=== PATIENT | female | born 1945 | race African-American/Black ===

== ENCOUNTER 2021-09-24 19:40 | Emergency (ER) | payer MEDICARE, OTHER ==
[~2021-09-24] VITALS: Ht 162.6 cm; Wt 55.8 kg
[2021-09-24 20:34] LABS: Basophils # (auto) 0.1 10 ^3/uL (0-0.2); Basophils % (auto) 0.7 % (0.0-2.0); Eosinophils # (auto) 0 10 ^3/uL (0-0.8); Eosinophils % (auto) 0.1 % (0.0-7.0); Hematocrit 33.8 % (36.0-46.0); Hemoglobin 11.3 g/dL (12.2-16.2); Mean Corpuscular Hemoglobin 28.4 pg (28.0-32.0); Mean Corpuscular Hgb Conc. 33.5 g/dL (32.0-36.0); Monocytes # (auto) 0.6 10 ^3/uL (0-1.3); Monocytes % (auto) 6.8 % (0.0-12.0); Neutrophils # (auto) 7.4 10 ^3/uL (1.6-8.6); Neutrophils % (auto) 81.4 % (37.0-80.0); Red Blood Cells 3.98 10^6/uL (4.0-5.20); Red Cell Distribution Width 17.9 % (11.8-14.3); White Blood Cell 9.1 10^3/uL (4.4-10.8)
[2021-09-24 20:42] LABS: Albumin 3.8 g/dL (3.4-5.0); Calcium 9.6 mg/dL (8.5-10.1); Magnesium 2.5 mg/dL (1.6-2.6); Potassium 3.9 mmol/L (3.5-5.1)
[2021-09-24 20:44] LABS: BUN/Creatinine Ratio 13.8
[2021-09-24 20:47] LABS: Bilirubin, Total 0.7 mg/dL (0.2-1.0); Total Protein 7.1 g/dL (6.4-8.2)
[2021-09-24 20:55] LABS: INR 2.8 (0.9-1.15); Partial Thromboplastin Time 27.9 sec (23.6-33.0)
[2021-09-24 21:03] LABS: Urine Bacteria FEW /hpf (None Seen); Urine Blood Negative /uL (Negative); Urine Specific Gravity 1.018 (1.001-1.035); Urine WBC 5 /hpf (0 - 5)
[2021-09-24] MEDS ORDERED: LACTATED RINGER'S 1,000 ML IV ONE (21:15)
[2021-09-24] MEDS ORDERED: IOHEXOL 300 MG/ML 100ML BOTTLE IJ ONE (21:20)
[2021-09-25] MEDS ORDERED: CIPR-173 PO (00:46)
[2021-09-25 00:53] VITALS: BP 155/92
== END 2021-09-25 00:39 | disposition home or self-care (01) ==
LOC: ER 19:40
DX: N39.0 Urinary tract infection, site not specified (principal); R11.2 Nausea with vomiting, unspecified; I10 Essential (primary) hypertension; I48.91 Unspecified atrial fibrillation
CPT/HCPCS: 36415; 71046; 74176; 80053; 81001; 82150; 83605; 83690; 83735; 84100; 84484; 85025; 85610; 85730; 96360; 99285; J7030; Q9967; 93005

== ENCOUNTER 2024-01-23 14:35 | Inpatient (IN) | payer MEDICARE, OTHER ==
[~2024-01-23] VITALS: Ht 162.6 cm; Wt 57.6 kg
[~2024-01-23 14:35] MED LIST: ALLO100T PO; CEFU500T43 PO; CIPR-173 PO; FURO20TA4 PO; HYDR50TA47 PO; LISI20TA56 PO; MET50T PO; ROSU10TA64 PO; TIOT17SP INH; WARF-110 PO
[2024-01-23 15:21] LABS: Basophils # (auto) 0.1 10 ^3/uL (0-0.2); Eosinophils # (auto) 0 10 ^3/uL (0-0.8); Eosinophils % (auto) 0.3 % (0.0-7.0); Hematocrit 36.4 % (36.0-46.0); Hemoglobin 12.2 g/dL (12.2-16.2); Lymphocytes % (auto) 20.2 % (10.0-50.0); Mean Corpuscular Hemoglobin 30.1 pg (28.0-32.0); Mean Corpuscular Hgb Conc. 33.4 g/dL (32.0-36.0); Monocytes # (auto) 0.5 10 ^3/uL (0-1.3); Monocytes % (auto) 10.9 % (0.0-12.0); Neutrophils # (auto) 3.4 10 ^3/uL (1.6-8.6); Neutrophils % (auto) 67.6 % (37.0-80.0); Nucleated Red Blood Cells % 0.1 %; Platelet Count (auto) 177 10^3/uL (140-450); Red Blood Cells 4.04 10^6/uL (4.0-5.20); Red Cell Distribution Width 16.3 % (11.8-14.3)
[2024-01-23 15:37] LABS: INR 1.71 (0.9-1.15); Partial Thromboplastin Time 30.6 SEC (24.5-34.5); Prothrombin Time 17.4 sec (9.3-11.8)
[2024-01-23 15:41] LABS: Alanine Aminotransferase 23 U/L (7-40); Albumin 4.2 g/dL (3.2-4.8); Alkaline Phosphatase 84 U/L (46-116); Anion Gap 11 (5-15); Aspartate Aminotransferase 31 U/L (13-40); Bilirubin, Total 0.6 mg/dL (0.2-1.0); Blood Urea Nitrogen 19 mg/dL (9-23); Calcium 9.5 mg/dL (8.7-10.4); Carbon Dioxide 21 mmol/L (20-30); Chloride 107 mmol/L (98-107); Glucose 107 mg/dL (74-106); Potassium 4.2 mmol/L (3.5-5.1); Sodium 139 mmol/L (136-145); Total Protein 7.1 g/dL (5.7-8.2)
[2024-01-23] MEDS: FUROSEMIDE 40 MG/4 ML VIAL IV ONE (17:15)
[2024-01-23 18:05] LABS: INR 1.64 (0.9-1.15); Partial Thromboplastin Time 28.4 SEC (24.5-34.5); Prothrombin Time 16.8 sec (9.3-11.8)
[2024-01-23 20:14] VITALS: PULSE 84; RESP 14; O2SAT 99
[2024-01-23] MEDS ORDERED: NITROGLYCERIN 0.4 MG SL TAB SL PRN (21:15)
[2024-01-23] MEDS ORDERED: ONDANSETRON HCL 4 MG/2 ML VIAL IV PRN (21:15)
[2024-01-23] MEDS ORDERED: HYDROcodone-ACET 5/325MG TAB PO PRN (21:15)
[2024-01-23] MEDS ORDERED: MORPHINE SULFATE INJ 2 MG/ml SYRG IV PRN (21:15)
[2024-01-23] MEDS ORDERED: IPRATROPIUM BROM 0.5 MG/2.5ML INH SOL NEB PRN (21:15)
[2024-01-23] MEDS ORDERED: ALBUTEROL SULF 2.5 MG/0.5ML(0.5%) NEB SOLN NEB PRN (21:15)
[2024-01-23] MEDS ORDERED: ACETAMINOPHEN 325 MG TAB PO PRN (21:15)
[2024-01-23] MEDS ORDERED: DOCUSATE SOD 100 MG CAP PO PRN (21:15)
[2024-01-23] MEDS: methylPREDNISolone SOD SUCC 40 MG/ML VL IM ONE (21:42)
[2024-01-23] MEDS: ATORVASTATIN 20 MG TAB PO SCH (21:55)
[2024-01-23] MEDS: CARVEDILOL 3.125 MG TAB PO SCH (22:00)
[2024-01-23] MEDS: SODIUM CHLOR 0.9% PF (SALINE LOCK) 10ML VIAL/SYR IV SCH (22:00)
[2024-01-23] MEDS: WARFARIN SODIUM 5 MG TAB PO ONE (22:00)
[2024-01-23] MEDS: methylPREDNISolone SOD SUCC 40 MG/ML VL IV SCH (22:08)
[2024-01-24] VITALS (14 sets, daily range): BP systolic 111–131; BP diastolic 65–83; PULSE 67–102; RESP 16–18; TEMP 97.4–98.5; O2SAT 94–100
[2024-01-24 01:05] LABS: COVID19 ANTIGEN SOFIA FIA POSITIVE (NEGATIVE)
[2024-01-24 06:26] LABS: Basophils # (auto) 0 10 ^3/uL (0-0.2); Basophils % (auto) 0.7 % (0.0-2.0); Eosinophils # (auto) 0 10 ^3/uL (0-0.8); Hematocrit 35.7 % (36.0-46.0); Lymphocytes # (auto) 0.9 10 ^3/uL (0.4-5.4); Lymphocytes % (auto) 21.9 % (10.0-50.0); Mean Corpuscular Hemoglobin 30.4 pg (28.0-32.0); Mean Corpuscular Hgb Conc. 33.5 g/dL (32.0-36.0); Mean Corpuscular Volume 90.7 fL (80.0-100.0); Monocytes # (auto) 0.1 10 ^3/uL (0-1.3); Monocytes % (auto) 3.4 % (0.0-12.0); Neutrophils # (auto) 3.1 10 ^3/uL (1.6-8.6); Nucleated Red Blood Cells % 0.3 %; Platelet Count (auto) 155 10^3/uL (140-450); Red Blood Cells 3.93 10^6/uL (4.0-5.20); Red Cell Distribution Width 16.4 % (11.8-14.3); White Blood Cell 4.2 10^3/uL (4.4-10.8)
[2024-01-24 06:31] LABS: Alanine Aminotransferase 27 U/L (7-40); Alkaline Phosphatase 79 U/L (46-116); Anion Gap 10 (5-15); Aspartate Aminotransferase 29 U/L (13-40); BUN/Creatinine Ratio 16.2 (10.0-20.0); Blood Urea Nitrogen 23 mg/dL (9-23); Calcium 9.6 mg/dL (8.7-10.4); Carbon Dioxide 22 mmol/L (20-30); Chloride 108 mmol/L (98-107); Glucose 98 mg/dL (74-106); Potassium 4.5 mmol/L (3.5-5.1); Sodium 140 mmol/L (136-145)
[2024-01-24 06:32] LABS: Bilirubin, Total 0.5 mg/dL (0.2-1.0); Total Protein 6.6 g/dL (5.7-8.2)
[2024-01-24 06:38] LABS: INR 1.67 (0.9-1.15)
[2024-01-24] MEDS ORDERED: IPRATROPIUM BROM 0.5 MG/2.5ML INH SOL NEB SCH ×2 (08:15→12:00)
[2024-01-24] MEDS: FUROSEMIDE 20 MG/2 ML VIAL IV SCH (11:12)
[2024-01-24] MEDS: BUDESONIDE (INHALATION) 180 MCG IH IN SCH (11:28)
[2024-01-24] MEDS ORDERED: LEVALBUTEROL HCL 1.25 MG/3 ML NEB NEB SCH (12:00)
[2024-01-24] MEDS: WARFARIN SODIUM 5 MG TAB PO ONE (17:05)
[2024-01-24] MEDS ORDERED: REMDESIVIR PER PHARMACY 0 ML IV SCH (17:15)
[2024-01-24] MEDS: ALLOPURINOL 100 MG TAB PO ONE (18:47)
[2024-01-24] MEDS: ENOXAPARIN SOD 100 MG/1 ML SYRINGE SC ONE (18:48)
[2024-01-24] MEDS: REMDESIVIR 200 MG in NS 210ml LOADING DOSE ADULT IV ONE (20:22)
[2024-01-24 20:53] LABS: Rapid Influenza A Negative (Negative); Rapid Influenza B Negative (Negative)
[2024-01-24] MEDS: SACUBITRIL-VALSARTAN 24mg/26mg TAB PO SCH (22:08)
[2024-01-25] VITALS (7 sets, daily range): BP systolic 94–104; BP diastolic 55–65; PULSE 67–105; RESP 17–19; TEMP 97.6–97.8; O2SAT 96–100
[2024-01-25 00:10] LABS: Urine Bacteria None Seen /hpf (None Seen)
[2024-01-25 00:28] LABS: Urine Blood Negative /uL (Negative); Urine Clarity Clear (Clear); Urine Color Light-Yellow (Yellow); Urine Protein, UAD Negative (Negative); Urine Specific Gravity 1.015 (1.001-1.035); Urine Urobilinogen Normal (Negative); Urine WBC 2 /hpf (0 - 5)
[2024-01-25] MEDS: ALBUTEROL SULF HFA 90MCG INH 200DOSE IN PRN (06:27)
[2024-01-25 08:12] LABS: Chloride 108 mmol/L (98-107); Potassium 3.9 mmol/L (3.5-5.1); Sodium 139 mmol/L (136-145)
[2024-01-25 08:13] LABS: Anion Gap 12 (5-15); Calcium 9.1 mg/dL (8.7-10.4); Carbon Dioxide 19 mmol/L (20-30)
[2024-01-25 08:18] LABS: BUN/Creatinine Ratio 27.6 (10.0-20.0); Glucose 81 mg/dL (74-106)
[2024-01-25 08:19] LABS: Blood Urea Nitrogen 34 mg/dL (9-23)
[2024-01-25] MEDS: METOPROLOL TARTRATE 50 MG TAB PO ONE (09:35)
[2024-01-25] MEDS: ALLOPURINOL 100 MG TAB PO SCH (09:35)
[2024-01-25 09:39] LABS: Basophils # (auto) 0 10 ^3/uL (0-0.2); Basophils % (auto) 0.6 % (0.0-2.0); Eosinophils # (auto) 0 10 ^3/uL (0-0.8); Eosinophils % (auto) 0.2 % (0.0-7.0); Hematocrit 37.8 % (36.0-46.0); Hemoglobin 12.6 g/dL (12.2-16.2); Lymphocytes # (auto) 1.3 10 ^3/uL (0.4-5.4); Lymphocytes % (auto) 31.9 % (10.0-50.0); Mean Corpuscular Hemoglobin 30.1 pg (28.0-32.0); Mean Corpuscular Hgb Conc. 33.3 g/dL (32.0-36.0); Mean Corpuscular Volume 90.3 fL (80.0-100.0); Monocytes # (auto) 0.4 10 ^3/uL (0-1.3); Monocytes % (auto) 9.2 % (0.0-12.0); Neutrophils # (auto) 2.4 10 ^3/uL (1.6-8.6); Neutrophils % (auto) 58.1 % (37.0-80.0); Nucleated Red Blood Cells % 0.2 %; Platelet Count (auto) 176 10^3/uL (140-450); Red Blood Cells 4.18 10^6/uL (4.0-5.20); Red Cell Distribution Width 16.5 % (11.8-14.3); White Blood Cell 4.1 10^3/uL (4.4-10.8)
[2024-01-25 09:56] LABS: INR 2.81 (0.9-1.15); Prothrombin Time 27.6 sec (9.3-11.8)
[2024-01-25] MEDS ORDERED: ENOXAPARIN SOD 100 MG/1 ML SYRINGE SC SCH ×2 (10:00)
[2024-01-25] MEDS ORDERED: ALLOPURINOL 100 MG TAB PO SCH (10:00)
[2024-01-25] MEDS ORDERED: ACET-1882 PO (13:15)
[2024-01-25] MEDS ORDERED: EMPA1TAB PO (13:15)
[2024-01-25] MEDS ORDERED: SPIR25TA8 PO (13:15)
[2024-01-25] MEDS ORDERED: SACU1TAB PO (13:15)
[2024-01-25] MEDS ORDERED: REMDESIVIR 100mg 100 MG in SODIUM CHL 0.9% 230 ML IV SCH (15:00)
[2024-01-25] MEDS ORDERED: WARFARIN SODIUM 2.5 MG TAB PO ONE (17:00)
== END 2024-01-25 14:30 | disposition home or self-care (01) | DRG 177 ==
LOC: ER 14:35 → TELE 21:18 → TELE-WESTW 21:18 → CENTRAL 01-24 07:27 → TELE-CENTR 01-24 19:59
PROVIDERS: ADMIT Internal Medicine Pulmonary Disease; ATTEND Internal Medicine Pulmonary Disease
PROC: XW033E5 Introduction of Remdesivir Anti-infective into Peripheral Vein, Percutaneous Approach, New Technology Group 5 (ICD-10-PCS; principal; 2024-01-24)
DX: U07.1 COVID-19 (principal); I50.23 Acute on chronic systolic (congestive) heart failure; N17.0 Acute kidney failure with tubular necrosis; I13.0 Hypertensive heart and chronic kidney disease with heart failure and stage 1 through stage 4 chronic kidney disease, or unspecified chronic kidney disease; J44.1 Chronic obstructive pulmonary disease with (acute) exacerbation; I48.91 Unspecified atrial fibrillation; I07.1 Rheumatic tricuspid insufficiency; N18.32 Chronic kidney disease, stage 3b; E78.5 Hyperlipidemia, unspecified; M10.9 Gout, unspecified; G90.A Postural orthostatic tachycardia syndrome [POTS]; Z88.8 Allergy status to other drugs, medicaments and biological substances; Z95.5 Presence of coronary angioplasty implant and graft; Z87.891 Personal history of nicotine dependence
CPT/HCPCS: 36415; 71045; 80048; 80053; 81001; 82306; 82607; 83036; 83735; 83880; 84443; 84484; 85025; 85610; 85730; 87081; 87426; 87804; 93005; 93306; 94640; 96374; G0378

== ENCOUNTER 2024-09-28 11:29 | Emergency (ER) | payer MEDICARE, OTHER ==
[~2024-09-28] VITALS: Ht 162.6 cm; Wt 54.0 kg
[~2024-09-28 11:29] MED LIST changes: +ACET-1882 PO; -CEFU500T43 PO; -CIPR-173 PO; +EMPA1TAB PO; -HYDR50TA47 PO; -LISI20TA56 PO; +SACU1TAB PO; +SPIR25TA8 PO
[2024-09-28 11:35] VITALS: O2SAT 100
--- NOTE | 2024-09-28 11:37 | ECG ---
[facility] Test Date: 2024-09-28 Test Time: 11:36:40 Pat Name: SUJATHA CHANG Department: ER Room: Gender: F Straw Boss: LJ : 1945 Requested By: BERYL JONES Order Number: [id number] Reading MD: Que Ruth Measurements Intervals [place] Rate: 81 P: 0 OR: 0 QRS: -18 QRSD: 101 T: 40 QT: 397 QTc: 461 Interpretive Statements Atrial fibrillation Anterior infarct, old Electronically Signed On 09-28-2024 21:05:13 PDT by Que Ruth Please click the below link to view image of tracing.
--- NOTE | 2024-09-28 12:44 | ED.PDOC ---
HPI Comments 79-year-old female presents to the ER with prior history of hypertension, high lipids, AFib, dementia, hyperparathyroidism, COPD, CHF; surgical history of cardiac stent, mitral valve repair chest pain. Patient was with the son and he stated that they 1st went to [facility] for abdominal pain but they were informed they got an abnormal EKG from the patient and to go to to the ER. Patient was stating of having sternal chest pain for four days, which coming go. Today the chest pain lasting for 1 hour. Denies chills, fever, N/V/D, SOB. No other associated symptoms, modifiers, recent injuries or sick contacts present at this time. Chief Complaint: Chest Pain Time Seen by MD: 12:30 Primary Care Provider: [place] Reviewed Notes: Nurses Notes, Medications, Allergies Allergies: Coded Allergies: Amlodipine (Verified Allergy, Severe, rash, 03/13/23) Labetalol (Verified Allergy, Unknown, 03/13/23) Home Meds Active Scripts Spironolactone (Spironolactone) 25 Mg Tab, 1 TAB PO DAILY for 90 Days, #90 TAB 1 Refill Prov:JENARO GOMEZ RESIDENT 01/25/24 Empagliflozin (Jardiance) 10 Mg Tab, 10 MG PO DAILY for 30 Days, #30 TAB Prov:JENARO GOMEZ RESIDENT 01/25/24 Sacubitril-Valsartan (Entresto 24-26 mg) 1 Tab Tab, 1 TAB PO BID for 30 Days, #60 TAB Prov:JENARO GOMEZ RESIDENT 01/25/24 Acetaminophen (Acetaminophen) 325 Mg Tab, 650 MG PO Q6HP PRN for 10 Days, #80 TAB Prov:JENARO GOMEZ RESIDENT 01/25/24 Reported Medications Furosemide (Furosemide) 20 Mg Tab, 1 TAB PO DAILY 02/03/23 Metoprolol Tartrate (LOPRESSOR TABLET) 50 Mg Tb, 1 TAB PO DAILY 02/03/23 Allopurinol (Allopurinol) 100 Mg Tab, 2 TAB PO DAILY 02/03/23 Warfarin Sodium (Warfarin Sodium) 2.5 Mg Tab, 2.5 TAB PO DAILY 02/03/23 Rosuvastatin Calcium (Rosuvastatin Calcium) 10 Mg Tab, 1 TAB PO HS 02/03/23 Tiotropium [place] Monohydrate (Spiriva Respimat) 2.5 Mcg/Act Spr, 2 PUFF INH DAILY 02/03/23 Information Source: Patient Mode of Arrival: Wheelchair Severity: Moderate Timing: Days Duration: Since onset, Days Prehospital treatment: None Location: Substernal Radiation: No Radiation Quality: Aching Onset: At Rest Cardiac Risk Factors: Hyperlipidemia, HTN PE Risk Factors: None History of: None Associated Signs and Symptoms: None Past Medical History PAST MEDICAL HISTORY: AFIB, CHF, COPD, Dementia, High Lipids, HTN Past Medical History (Other): Hyperparathyroidism Surgical History (Other): Cardiac stent, mitral valve repair DIALYSIS CLINICAL MANAGER History: No Pertinent DIALYSIS CLINICAL MANAGER History Family History Family History: Reviewed,noncontributory to illness, Unknown Social History Smoker: Non-Smoker Alcohol: Denies ETOH Use Drugs: Denies Drug Use Lives In: Home Constitutional: denies: chills, diaphoresis, fatigue, fever, malaise, sweats, weakness, others EENTM: denies: blurred vision, double vision, ear bleeding, ear discharge, ear drainage, ear pain, ear ringing, eye pain, eye redness, hearing loss, mouth pain , mouth swelling, nasal discharge, nose bleeding, nose congestion, nose pain, photophobia, tearing, throat pain, throat swelling, voice changes, others Respiratory: denies: cough, hemoptysis, orthopnea, SOB at rest, shortness of breath, SOB with excertion, stridor, wheezing, others Cardiovascular: reports: chest pain; denies: dizzy spells, diaphoresis, Dyspnea on exertion, edema, irregular heart beat, left arm pain, lightheadedness, palpitations, PND, syncope, others Gastrointestinal: denies: abdomen distended, abdominal pain, blood streaked bowels, constipated, diarrhea, dysphagia, difficulty swallowing, hematemesis, melena, nausea, poor appetite, poor fluid intake, rectal bleeding, rectal pain, vomiting, others Genitourinary: denies: abnormal vagina bleeding, burning, dyspareunia, dysuria, flank pain, frequency, hematuria, incontinence, pain, , vagina discharge, urgency, others Neurological: denies: dizziness, fainting, headache, left sided numbness, left sided weakness, numbness, paresthesia, pre-existing deficit, right sided numbness, right sided weakness, seizure, speech problems, tingling, tremors, weakness, others Musculoskeletal: denies: back pain, gout, joint pain, joint swelling, muscle pain, muscle stiffness, neck pain, others Integumetry: denies: bruises, change in color, change in hair/nails, dryness, laceration, lesions, lumps, rash, wounds, others Allergic/Immunocompromised: denies: Difficulty Healing, Frequent Infections, Hives, Itching, others Hematologic/Lymphatic: denies: anemia, blood clots, easy bleeding, easy bruising, swollen glands, others Endocrine: denies: excessive hunger, excessive sweating, excessive thirst, excessive urination, flushing, intolerance to cold, intolerance to heat, unexplained weight gain, unexplained weight loss, others Psychiatric: denies: anxiety, bipolar disorder, depression, hopeless, panic disorder, schizophrenia, sleepless, suicidal, others All Other Systems: Reviewed and Negative Physical Exam Exam Comments Chest pain has currently subsided General Appearance: No Apparent Distress, Normal HEENT: Normal ENT Inspection, Pharynx Normal, TMs Normal Neck: Full Range of Motion, Non-Tender, Normal, Normal Inspection Respiratory: Chest Non-Tender, Lungs Clear, No Accessory Muscle Use, No R espiratory Distress, Normal Breath Sounds Cardiovascular: No Edema, No JVD, No Murmur, No Gallop, Normal Peripheral Pulses, Regular Rate/Rhythm Breast Exam: Deferred Gastrointestinal: No Organomegaly, Non Tender, No Pulsatile Mass, Normal Bowel Sounds, Soft Genitalia: Deferred Pelvic: Deferred Rectal: Deferred Extremities: No calf tenderness, Normal capillary refill, Normal inspection, Normal range of motion, Non-tender, No pedal edema Musculoskeletal : Apperance: Normal Neurologic: Alert, sweet pickle maker II-XII nml as Tested, No Motor Deficits, Normal Affect, Normal Mood, No Sensory Deficits Cerebellar Function: Normal Reflexes: Normal Skin: Dry, Normal Color, Warm Lymphatic: No Adenopathy EKG EKG : Pulse Rate (adult): 81 [place]: Normal Cardiac Rhythm: Afib Block: None Hypertrophy: None ST: Normal Was a procedure done? Was a procedure done?: No CP Differential Dx Differential Diagnosis: Other Other Differential Diagnosis Acute coronary syndrome, UTI, pneumonia, electrolyte abnormality, PE, gastritis, atypical chest pain, pleurisy Differential Diagnosis: Other Differential Diagnosis: Angina, Aortic dissection, Chest Wall Pain, Costochondritis, Esophageal reflux/spasm, Myocardial Infarction, Pneumonia, Pneumothorax, Pulmonary Embolus, Other X-Ray, Labs, Meds, VS Vital Signs Date Time Temp Pulse Resp B/P (MAP) Pulse Ox O2 Delivery O2 Flow Rate FiO2 09/28/24 14:24 60 Room Air 09/28/24 14:24 98.2 60 16 104/72 (83) 98.2 09/28/24 12:44 81 09/28/24 11:36 81 09/28/24 11:35 97.2 60 16 126/49 (74) 100 97.2 Lab Test 09/28/24 13:00 09/28/24 11:50 Range/Units Troponin I High Sensitivity 10 11 </=34 ng/L White Blood Count 4.3 L 4.4-10.8 10^3/uL Red Blood Count 5.30 H 4.0-5.20 10^6/uL Hemoglobin 15.1 12.2-16.2 g/dL Hematocrit 46.0 36.0-46.0 % Mean Corpuscular Volume 86.8 80.0-100.0 fL Mean Corpuscular Hemoglobin 28.5 28.0-32.0 pg Mean Corpuscular Hemoglobin Concent 32.8 32.0-36.0 g/dL Red Cell Distribution Width 17.9 H 11.8-14.3 % Platelet Count 185 140-450 10^3/uL Mean Platelet Volume 8.8 6.9-10.8 fL Neutrophils (%) (Auto) 60.4 37.0-80.0 % Lymphocytes (%) (Auto) 28.2 10.0-50.0 % Monocytes (%) (Auto) 7.4 0.0-12.0 % Eosinophils (%) (Auto) 2.7 0.0-7.0 % Basophils (%) (Auto) 1.3 0.0-2.0 % Neutrophils # (Auto) 2.6 1.6-8.6 10 ^3/uL Lymphocytes # (Auto) 1.2 0.4-5.4 10 ^3/uL Monocytes # (Auto) 0.3 0-1.3 10 ^3/uL Eosinophils # (Auto) 0.1 0-0.8 10 ^3/uL Basophils # (Auto) 0.1 0-0.2 10 ^3/uL Nucleated Red Blood Cells 0.1 % Prothrombin Time 42.5 H 9.3-11.8 sec Prothrombin Time INR 4.67 *H 0.9-1.15 Activated Partial Thromboplast Time 39.3 H 24.5-34.5 SEC Sodium Level 141 136-145 mmol/L Potassium Level 4.8 3.5-5.1 mmol/L Chloride Level 108 H 98-107 mmol/L Carbon Dioxide Level 24 20-31 mmol/L Anion Gap 9 5-15 Blood Urea Nitrogen 26 H 9-23 mg/dL Creatinine 1.64 H 0.550-1.02 mg/dL Glomerular Filtration Rate Calc 31 >90 mL/min BUN/Creatinine Ratio 15.9 10.0-20.0 Serum Glucose 90 74-106 mg/dL Calcium Level 10.2 8.7-10.4 mg/dL 79-year-old female presents here with chest discomfort that she has a proximally 1 hour every morning for the last 1 month. Her son is at bedside in his her primary drafter plumbing. At this time blood work has been done which does demonstrate mild acute kidney injury of 20/6 over 1.64 creatinine. Also has significantly elevated INR of 4.67. Troponin x2 is negative. EKG demonstrates atrial fibrillation only. I had a long conversation with the son the patient and the patient's . I advised him that at this time standard of care is to admit the patient however given she is [facility] they will likely need to transfer her to [facility]. At this time family and patient prefer not to be admitted. They advised they will follow up with [facility] to determine if all the cardiac test has been done for. Son does state she had multiple cardiac test done few months ago. At [facility]. Additionally her INR is 4.67. [facility]. I advised him to stop her Coumadin until she gets repeat lab work done at the clinic. Son is agreeable. I strongly advised him to make sure she does not have any falls as this can lead to acute brain hemorrhage. He is aware. She does have mild acute kidney injury today on her labs. I have discussed this with the son and he will follow up with her PCP at [facility]. I again a long conversation with the son regarding any chest pain she has today tomorrow, without appropriate cardiac testing I can not tell him that she is safe. I strongly advised both patient patient's and the son that if she has chest pain even later on today to return back to the ER for further evaluation. The son , and the family family are agreeable. Time of 1ST Reevaluation: 13:00 Reevaluation 1ST: Unchanged Patient Education/Counseling: Diagnosis, Treatment, Prognosis Family Education/Counseling: No Family Present Departure 1 Departure Time of Disposition: 14:05 Impression: Primary Impression: Chest pain Qualified Codes: R07.9 - Chest pain, unspecified Additional Impressions: Acute kidney injury Supratherapeutic INR Disposition: HOME / SELF CARE / HOMELESS Condition: Fair Additional Instructions: DO NOT TAKE HER COUMADIN UNTIL AFTER COUMADIN CLINIC GIVE YOU RESULTS. Discharged With: Self, Relative, Contact Person Critical Care Note Critical Care Time?: No Stability Stability form required: No Heart Score Heart Score: Heart Score Response (Comments) Value History Moderate Suspicious 1 EKG Normal 0 Age >65 2 Risk Factors 1 or 2 risk factors 1 Troponin Normal limit 0 Total 4 I personally scribed for BERYL JONES MD ([email or web address]) on 09/28/24 at 12:44. Electronically submitted by Carloz Kapoor (Class MessengerA). I personally scribed for BERYL JONES MD ([email or web address]) on 09/28/24 at 14:05. Electronically submitted by Carloz Kapoor (Class MessengerA). BERYL JONES MD September 28, 2024 12:44
[2024-09-28 12:49] LABS: Basophils # (auto) 0.1 10 ^3/uL (0-0.2); Basophils % (auto) 1.3 % (0.0-2.0); Eosinophils # (auto) 0.1 10 ^3/uL (0-0.8); Eosinophils % (auto) 2.7 % (0.0-7.0); Hemoglobin 15.1 g/dL (12.2-16.2); Lymphocytes # (auto) 1.2 10 ^3/uL (0.4-5.4); Lymphocytes % (auto) 28.2 % (10.0-50.0); Mean Corpuscular Hemoglobin 28.5 pg (28.0-32.0); Mean Corpuscular Hgb Conc. 32.8 g/dL (32.0-36.0); Mean Corpuscular Volume 86.8 fL (80.0-100.0); Monocytes # (auto) 0.3 10 ^3/uL (0-1.3); Monocytes % (auto) 7.4 % (0.0-12.0); Neutrophils # (auto) 2.6 10 ^3/uL (1.6-8.6); Neutrophils % (auto) 60.4 % (37.0-80.0); Nucleated Red Blood Cells % 0.1 %; Platelet Count (auto) 185 10^3/uL (140-450); Red Cell Distribution Width 17.9 % (11.8-14.3); White Blood Cell 4.3 10^3/uL (4.4-10.8)
[2024-09-28 12:51] LABS: Potassium 4.8 mmol/L (3.5-5.1); Sodium 141 mmol/L (136-145)
[2024-09-28 12:52] LABS: Anion Gap 9 (5-15); Carbon Dioxide 24 mmol/L (20-31)
[2024-09-28 12:53] LABS: Calcium 10.2 mg/dL (8.7-10.4)
[2024-09-28 12:57] LABS: Glucose 90 mg/dL (74-106)
[2024-09-28 12:58] LABS: BUN/Creatinine Ratio 15.9 (10.0-20.0)
[2024-09-28 13:00] LABS: Blood Urea Nitrogen 26 mg/dL (9-23); Chloride 108 mmol/L (98-107)
[2024-09-28 13:08] LABS: Partial Thromboplastin Time 39.3 SEC (24.5-34.5); Prothrombin Time 42.5 sec (9.3-11.8)
[2024-09-28 13:14] LABS: INR 4.67 (0.9-1.15)
[2024-09-28 14:24] VITALS: BP 104/72; PULSE 60; RESP 16; TEMP 98.2
== END 2024-09-28 14:35 | disposition home or self-care (01) ==
LOC: ER 11:29
DX: N17.9 Acute kidney failure, unspecified (principal); I11.0 Hypertensive heart disease with heart failure; I50.9 Heart failure, unspecified; I48.91 Unspecified atrial fibrillation; J44.9 Chronic obstructive pulmonary disease, unspecified; F03.90 Unspecified dementia, unspecified severity, without behavioral disturbance, psychotic disturbance, mood disturbance, and anxiety; Z79.01 Long term (current) use of anticoagulants; Z79.84 Long term (current) use of oral hypoglycemic drugs; Z95.5 Presence of coronary angioplasty implant and graft; Z98.890 Other specified postprocedural states; Z79.899 Other long term (current) drug therapy; Z88.8 Allergy status to other drugs, medicaments and biological substances
CPT/HCPCS: 36415; 80048; 84484; 85025; 85610; 85730; 93005

== ENCOUNTER 2024-12-14 09:09 | Emergency (ER) | payer MEDICARE, OTHER ==
[~2024-12-14] VITALS: Ht 162.6 cm; Wt 58.3 kg
--- NOTE | 2024-12-14 09:25 | ECG ---
[facility] Test Date: 2024-12-14 Test Time: 09:18:29 Pat Name: SUJATHA CHANG Department: ER Room: Gender: F Cork Grinder: LJ : 1945 Requested By: GENET ALMAGUER Order Number: [id number] Reading MD: Que Ruth Measurements Intervals [place] Rate: 87 P: 0 [place]: 0 QRS: -31 QRSD: 92 T: 45 QT: 378 QTc: 455 Interpretive Statements Atrial fibrillation Left axis deviation Low voltage, precordial leads Abnormal R-wave progression, late transition Electronically Signed On 12-16-2024 22:04:17 PDT by Que Ruth Please click the below link to view image of tracing.
--- NOTE | 2024-12-14 09:29 | ED.PDOC ---
GI ASSESSMENT HPI Comments An 79 year-old female, with a PMHX of High Lipids, CHF, COPD, and AFIB, presents to the ED via wheelchair with a chief complaint of abdominal pain as of X1 week ago. Patient states she was seen at [facility] a few days ago and diagnosed with constipation. Patient reports a small bowel movement yesterday after taking enemas and a mag citrate. Patient has no further at this time and otherwise denies further associated symptoms of nausea, vomiting, diarrhea, back pain, fever, or chills. Chief Complaint: Abdominal Pain Time Seen by MD: 09:26 Primary Care Provider: [place] Reviewed Notes: Medications, Allergies Allergies: Coded Allergies: Amlodipine (Verified Allergy, Severe, rash, 03/13/23) Labetalol (Verified Allergy, Unknown, 03/13/23) Home Meds Active Scripts Spironolactone (Spironolactone) 25 Mg Tab, 1 TAB PO DAILY for 90 Days, #90 TAB 1 Refill Prov:JENARO GOMEZ RESIDENT 01/25/24 Empagliflozin (Jardiance) 10 Mg Tab, 10 MG PO DAILY for 30 Days, #30 TAB Prov:JENARO GOMEZ RESIDENT 01/25/24 Sacubitril-Valsartan (Entresto 24-26 mg) 1 Tab Tab, 1 TAB PO BID for 30 Days, #60 TAB Prov:JENARO GOMEZ RESIDENT 01/25/24 Acetaminophen (Acetaminophen) 325 Mg Tab, 650 MG PO Q6HP PRN for 10 Days, #80 TAB Prov:JENARO GOMEZ RESIDENT 01/25/24 Reported Medications Furosemide (Furosemide) 20 Mg Tab, 1 TAB PO DAILY 02/03/23 Metoprolol Tartrate (LOPRESSOR TABLET) 50 Mg Tb, 1 TAB PO DAILY 02/03/23 Allopurinol (Allopurinol) 100 Mg Tab, 2 TAB PO DAILY 02/03/23 Warfarin Sodium (Warfarin Sodium) 2.5 Mg Tab, 2.5 TAB PO DAILY 02/03/23 Rosuvastatin Calcium (Rosuvastatin Calcium) 10 Mg Tab, 1 TAB PO HS 02/03/23 Tiotropium [place] Monohydrate (Spiriva Respimat) 2.5 Mcg/Act Spr, 2 PUFF INH DAILY 02/03/23 Information Source: Patient Mode of Arrival: Wheelchair Timing: Weeks (1) Duration: Since onset Prehospital treatment: None Quality: None Vomitus: None Severity: Moderate Recent: None Recent Hx of: None Pain Location: None Associated sign and symptoms: Abdominal Pain Past Medical History PAST MEDICAL HISTORY: AFIB, CHF, COPD, Dementia, High Lipids, HTN Surgical History: Denies all surgeries EMERGENCY CARE ATTENDANT History: No Pertinent EMERGENCY CARE ATTENDANT History Family History Family History: Reviewed,noncontributory to illness, Unknown Social History Smoker: Non-Smoker Alcohol: Denies ETOH Use Drugs: Denies Drug Use Lives In: Home Constitutional: denies: chills, diaphoresis, fatigue, fever, malaise, sweats, weakness, others EENTM: denies: blurred vision, double vision, ear bleeding, ear discharge, ear drainage, ear pain, ear ringing, eye pain, eye redness, hearing loss, mouth pain, mouth swelling, nasal discharge, nose bleeding, nose congestion, nose pain, photophobia, tearing, throat pain, throat swelling, voice changes, others Respiratory: denies: cough, hemoptysis, orthopnea, SOB at rest, shortness of breath, SOB with excertion, stridor, wheezing, others Cardiovascular: denies: chest pain, dizzy spells, diaphoresis, Dyspnea on exertion, edema, irregular heart beat, left arm pain, lightheadedness, palpitations, PND, syncope, others Gastrointestinal: reports: abdominal pain; denies: abdomen distended, blood streaked bowels, constipated, diarrhea, dysphagia, difficulty swallowing, hematemesis, melena, nausea, poor appetite, poor fluid intake, rectal bleeding, rectal pain, vomiting, others Genitourinary: denies: abnormal vagina bleeding, burning, dyspareunia, dysuria, flank pain, frequency, hematuria, incontinence, pain, , vagina discharge, urgency, others Neurological: denies: dizziness, fainting, headache, left sided numbness, left sided weakness, numbness, paresthesia, pre-existing deficit, right sided numbness, right sided weakness, seizure, speech problems, tingling, tremors, weakness, others Musculoskeletal: denies: back pain, gout, joint pain, joint swelling, muscle pain, muscle stiffness, neck pain, others Integumetry: denies: bruises, change in color, change in hair/nails, dryness, laceration, lesions, lumps, rash, wounds, others Allergic/Immunocompromised: denies: Difficulty Healing, Frequent Infections, Hives, Itching, others Hematologic/Lymphatic: denies: anemia, blood clots, easy bleeding, easy bruising, swollen glands, others Endocrine: denies: excessive hunger, excessive sweating, excessive thirst, excessive urination, flushing, intolerance to cold, intolerance to heat, unexplained weight gain, unexplained weight loss, others Psychiatric: denies: anxiety, bipolar disorder, depression, hopeless, panic disorder, schizophrenia, sleepless, suicidal, others All Other Systems: Reviewed and Negative Physical Exam General Appearance: Moderate Distress HEENT: Normal ENT Inspection, Pharynx Normal, TMs Normal Neck: Full Range of Motion, Non-Tender, Normal, Normal Inspection Respiratory: Chest Non-Tender, Lungs Clear, No Accessory Muscle Use, No Respiratory Distress, Normal Breath Sounds Cardiovascular: Irregular, No Edema, No JVD, No Murmur, No Gallop, Normal Peripheral Pulses Breast Exam: Deferred Gastrointestinal: No Organomegaly, Non Tender, No Pulsatile Mass, Normal Bowel Sounds, Soft Genitalia: Deferred Pelvic: Deferred Rectal: Deferred Extremities: No calf tenderness, Normal capillary refill, Normal inspection, Normal range of motion, Non-tender, No pedal edema Musculoskeletal : Apperance: Normal Neurologic: Alert, forest pathology associate professor II-XII nml as Tested, No Motor Deficits, Normal Affect, Normal Mood, No Sensory Deficits Cerebellar Function: NOT DONE Reflexes: NOT DONE Skin: Dry, Normal Color, Warm Peripheral Pulses: 3+ Radial (R), 3+ Radial (L) Lymphatic: No Adenopathy EKG EKG : Pulse Rate (adult): 87 [place]: Normal Cardiac Rhythm: Afib Block: None Hypertrophy: None ST: Normal Was a procedure done? Was a procedure done?: No GI differential Dx Differential Diagnosis: Constipation, Diverticular disease, Esophagitis, Gastritis/PUD, Gastroenteritis, Dehydration, Electrolyte Imbalance, Food Poisoning, Bacterial, Parasitic, Viral X-Ray, Labs, Meds, VS Vital Signs Date Time Temp Pulse Resp B/P (MAP) Pulse Ox O2 Delivery O2 Flow Rate FiO2 12/14/24 10:42 91 16 95 Room Air 12/14/24 10:42 97.4 91 16 114/66 (82) 95 97.4 12/14/24 09:29 87 12/14/24 09:18 87 12/14/24 09:11 98.5 83 16 123/56 96 98.5 Lab Test 12/14/24 09:32 Range/Units White Blood Count 4.5 4.4-10.8 10^3/uL Red Blood Count 4.83 4.0-5.20 10^6/uL Hemoglobin 13.6 12.2-16.2 g/dL Hematocrit 41.2 36.0-46.0 % Mean Corpuscular Volume 85.2 80.0-100.0 fL Mean Corpuscular Hemoglobin 28.2 28.0-32.0 pg Mean Corpuscular Hemoglobin Concent 33.1 32.0-36.0 g/dL Red Cell Distribution Width 15.5 H 11.8-14.3 % Platelet Count 209 140-450 10^3/uL Mean Platelet Volume 9.1 6.9-10.8 fL Neutrophils (%) (Auto) 59.3 37.0-80.0 % Lymphocytes (%) (Auto) 28.2 10.0-50.0 % Monocytes (%) (Auto) 7.6 0.0-12.0 % Eosinophils (%) (Auto) 3.5 0.0-7.0 % Basophils (%) (Auto) 1.4 0.0-2.0 % Neutrophils # (Auto) 2.7 1.6-8.6 10 ^3/uL Lymphocytes # (Auto) 1.3 0.4-5.4 10 ^3/uL Monocytes # (Auto) 0.3 0-1.3 10 ^3/uL Eosinophils # (Auto) 0.2 0-0.8 10 ^3/uL Basophils # (Auto) 0.1 0-0.2 10 ^3/uL Nucleated Red Blood Cells 0.2 % Sodium Level 145 136-145 mmol/L Potassium Level 4.2 3.5-5.1 mmol/L Chloride Level 107 98-107 mmol/L Carbon Dioxide Level 27 20-31 mmol/L Anion Gap 11 5-15 Blood Urea Nitrogen 25 H 9-23 mg/dL Creatinine 1.70 H 0.550-1.02 mg/dL Glomerular Filtration Rate Calc 30 >90 mL/min BUN/Creatinine Ratio 14.7 10.0-20.0 Serum Glucose 103 74-106 mg/dL Calcium Level 9.5 8.7-10.4 mg/dL Current Medications Medications (Trade) Dose Ordered Sig/Kiran Route Start Time Stop Time Status Last Admin Sodium Chloride 1,000 ml @ 1,000 mls/hr Q1H ONCE IV 12/14/24 09:45 12/14/24 10:44 DC 12/14/24 10:[address] [address] Ph: [phone] DIAGNOSTIC IMAGING Diagnostic Imaging Report : [id number] Signed PATIENT: SUJATHA CHANG ACCT: [id number] UNIT: [id number] : 1945 LOC: ER ROOM / BED: / AGE / SEX: 79 / F ADM STATUS: REG ER SERVICE 2 ORDERING PHYSICIAN: GENET ALMAGUER MD PROCEDURE(s): KUB - KUB ABDOMEN SINGLE VIEW REASON: constipation ORDER NUMBER(s): [id number], ACCESSION NUMBER(s): [id number] Exam: XY KUB ABDOMEN SINGLE VIEW Indication: constipation Comparison: CT ABD PELVIS WO CONTRAST on DOS: 09/24/21 Technique: 1 radiographic views of the abdomen. Findings: Nonobstructive bowel gas pattern noted. There is no definite evidence for pneumoperitoneum. No abnormal calcifications noted. Impression: 1. Moderately severe fecal residue throughout the colon. No dilated small bowel loops. Scoliosis Spondylosis Valve replacement Mild cardiomegaly Patient alert. Complaining of abdominal pain. Irregular pulse. WBC within normal limits. Hemoglobin within normal limits. Elevated kidney function. Continue monitoring. EKG reviewed does not show any acute process. KUB does show mild constipation. Establish intravenous access. Was given fluids. Abdomen is soft nontender. No acute process. No leg swelling. No chest pain. She was told to drink plenty of fluids. Explained to the patient. Was told to follow up with her primary care physician. Was told to come back if there is any problem. Time of 1ST Reevaluation: 09:53 Reevaluation 1ST: Unchanged Patient Education/Counseling: Diagnosis, Treatment Family Education/Counseling: Diagnosis, Treatment SEPSIS Sepsis Screen Date sepsis recognized/suspect: Dec 14, 2024 Time Sepsis recognized/suspect: 0911 Recent Procedure: No On Antibiotic Therapy: No Respiratory Rate >20: No Heart Rate >90: No Temp<36 C (96.8 F) or >38.3 C: No SBP <90 or MAP <65 mmHG: No New Acute Mental Status Change: No Is the patient on CPAP, BIPAP,: No Physician Orders Urinalysis (12/14/24 09:22) Kub Abdomen Single View (12/14/24 09:43) Vital Signs Date Time Temp Pulse Resp B/P (MAP) Pulse Ox O2 Delivery O2 Flow Rate FiO2 12/14/24 10:42 91 16 95 Room Air 12/14/24 10:42 97.4 91 16 114/66 (82) 95 97.4 12/14/24 09:29 87 12/14/24 09:18 87 12/14/24 09:11 98.5 83 16 123/56 96 98.5 Laboratory Tests Test 12/14/24 09:32 White Blood Count 4.5 10^3/uL (4.4-10.8) Medications Medications Dose Ordered Sig/Kiran Route Start Time Stop Time Status Last Admin Dose Admin Sodium Chloride 1,000 ml @ 1,000 mls/hr Q1H ONCE IV 12/14/24 09:45 12/14/24 10:44 DC 12/14/24 10:36 Departure 1 Departure Time of Disposition: 10:30 Impression: Primary Impression: Constipation Qualified Codes: K59.01 - Slow transit constipation Additional Impression: Afib Qualified Codes: I48.0 - Paroxysmal atrial fibrillation Disposition: 01 HOME / SELF CARE / HOMELESS Condition: Good Discharged With: Self Critical Care Note Critical Care Time?: No Stability Stability form required: No Heart Score Heart Score: Heart Score Response (Comments) Value History Slightly Suspicious 0 EKG Normal 0 Age >65 2 Risk Factors 1 or 2 risk factors 1 Troponin Normal limit 0 Total 3 I personally scribed for GENET ALMAGUER MD ([email or web address]) on 12/14/24 at 09:29. Electronically submitted by Mindy Duke ([employer]). I personally scribed for GENET ALMAGUER MD ([email or web address]) on 12/14/24 at 09:42. Electronically submitted by Mindy Duke ([employer]). I personally scribed for GENET ALMAGUER MD ([email or web address]) on 12/14/24 at 10:33. Electronically submitted by Mindy Duke ([employer]). I personally scribed for GENET ALMAGUER MD ([email or web address]) on 12/14/24 at 11:13. Electronically submitted by Mindy Duke ([employer]). I personally scribed for GENET ALMAGUER MD ([email or web address]) on 12/14/24 at 12:02. Electronically submitted by Mindy Duke ([employer]). GENET ALMAGUER MD Dec 14, 2024 09:29
[2024-12-14 10:03] LABS: Hematocrit 41.2 % (36.0-46.0); Hemoglobin 13.6 g/dL (12.2-16.2); Mean Corpuscular Hemoglobin 28.2 pg (28.0-32.0); Mean Corpuscular Volume 85.2 fL (80.0-100.0); Nucleated Red Blood Cells % 0.2 %
[2024-12-14 10:06] LABS: Chloride 107 mmol/L (98-107); Potassium 4.2 mmol/L (3.5-5.1); Sodium 145 mmol/L (136-145)
[2024-12-14 10:07] LABS: Anion Gap 11 (5-15); Calcium 9.5 mg/dL (8.7-10.4); Carbon Dioxide 27 mmol/L (20-31)
[2024-12-14 10:12] LABS: BUN/Creatinine Ratio 14.7 (10.0-20.0); Glucose 103 mg/dL (74-106)
[2024-12-14 10:13] LABS: Blood Urea Nitrogen 25 mg/dL (9-23)
--- NOTE | 2024-12-14 10:21 | DVH ---
Exam: XY KUB ABDOMEN SINGLE VIEW Indication: constipation Comparison: CT ABD PELVIS WO CONTRAST on DOS: 09/24/21 Technique: 1 radiographic views of the abdomen. Findings: Nonobstructive bowel gas pattern noted. There is no definite evidence for pneumoperitoneum. No abnormal calcifications noted. Impression: 1. Moderately severe fecal residue throughout the colon. No dilated small bowel loops. Scoliosis Spondylosis Valve replacement Mild cardiomegaly
[2024-12-14] MEDS: SODIUM CHLORIDE 0.9% 1,000 ML IV ONE (10:36)
[2024-12-14 13:01] VITALS: BP 108/64; PULSE 88; RESP 18; TEMP 97; O2SAT 96
== END 2024-12-14 13:02 | disposition home or self-care (01) ==
LOC: ER 09:09
DX: K59.00 Constipation, unspecified (principal); I48.91 Unspecified atrial fibrillation; I11.0 Hypertensive heart disease with heart failure; I50.9 Heart failure, unspecified; J44.9 Chronic obstructive pulmonary disease, unspecified; F03.90 Unspecified dementia, unspecified severity, without behavioral disturbance, psychotic disturbance, mood disturbance, and anxiety; E78.5 Hyperlipidemia, unspecified; Z88.8 Allergy status to other drugs, medicaments and biological substances; Z79.899 Other long term (current) drug therapy; Z79.84 Long term (current) use of oral hypoglycemic drugs; Z79.01 Long term (current) use of anticoagulants
CPT/HCPCS: 36415; 74018; 80048; 85025; 93005; 96360; 99285; J7030

== ENCOUNTER → 2025-01-06 | Emergency (ER) | payer MEDICARE, OTHER ==
--- NOTE | 2025-01-06 13:07 | ECG ---
[facility] Test Date: 2025-01-06 Test Time: 13:06:16 Pat Name: SUJATHA CHANG Department: ED Room: Gender: F [employer]: ALLA : 1945 Requested By: GENET ALMAGUER Order Number: [id number] Reading MD: Que Ruth Measurements Intervals Pitman Rate: 94 P: 71 CO: 149 QRS: 51 QRSD: 88 T: 106 QT: 406 QTc: 508 Interpretive Statements Sinus rhythm Low voltage, precordial leads Borderline repolarization abnormality Prolonged QT interval Baseline wander in lead(s) V1,V2 Electronically Signed On 01-08-2025 18:42:03 PDT by Que Ruth Please click the below link to view image of tracing.
== END | disposition home or self-care (01) ==
LOC: ER 12:59
DX: R11.0 Nausea (principal); Z53.21 Procedure and treatment not carried out due to patient leaving prior to being seen by health care provider; Z79.899 Other long term (current) drug therapy
CPT/HCPCS: 93005